=== PATIENT | male | born 1970 | race Caucasian/White ===

== ENCOUNTER 2021-06-23 10:17 | Emergency (ER) | payer OTHER ==
[~2021-06-23] VITALS: Ht 182.9 cm; Wt 102.3 kg
[~2021-06-23 10:17] MED LIST: BUPROPRION; LEVOTHYROXIN0.025 MG PO; LISINOPRIL1 POW; PERCOCET 325 MG1 TA2 PO; RITALIN; TRICOR48 MG PO
[2021-06-23 10:40] VITALS: BP 109/62; TEMP 97.8
[2021-06-23 12:05] VITALS: PULSE 94
== END 2021-06-23 12:30 | disposition home or self-care (01) ==
LOC: COL.ER 10:17
DX: S81.011A Laceration without foreign body, right knee, initial encounter (principal); W26.8XXA Contact with other sharp object(s), not elsewhere classified, initial encounter